=== PATIENT | female | born 1945 | race Caucasian/White ===

== ENCOUNTER → 2017-05-17 | Emergency (ER) | payer MEDICARE ==
--- NOTE | 2017-05-17 15:11 | NUR ---
Patient left without being seen by ER Physician
== END | disposition left against medical advice (07) ==
LOC: ER 14:47
DX: Z53.21 Procedure and treatment not carried out due to patient leaving prior to being seen by health care provider (principal)

== ENCOUNTER 2018-02-08 15:03 | Emergency (ER) | payer MEDICARE ==
[~2018-02-08] VITALS: Ht 154.9 cm; Wt 64.0 kg
--- NOTE | 2018-02-08 15:30 | NUR ---
PT CAME IN WITH C/O VAGINAL BLEEDING SINCE THIS AM. DENIES TRAUMA. VSS. SEEN BY FOR PERLA. FAMILY MEMBER AT . SAFETY AND COMFORT MEASURES PROVIDED. WILL MONITOR.
--- NOTE | 2018-02-08 16:20 | NUR ---
AT FOR PELVIC EXAM.
[2018-02-08] MEDS ORDERED: ACETAMINOPHEN ES 500 MG TABLET PO ONE (16:30)
--- NOTE | 2018-02-08 16:35 | NUR ---
PT REFUSED MED. MADE AWARE.
[2018-02-08] MEDS ORDERED: ACETAMINOPHEN ES 500 MG TABLET ONE (16:38)
--- NOTE | 2018-02-08 17:25 | NUR ---
US TECH AT BS.
--- NOTE | 2018-02-08 18:05 | NUR ---
Patient discharged to home in stable condition. Written and verbal after care instructions given. Patient verbalizes understanding of instruction.
[2018-02-08 18:06] VITALS: BP 132/77
== END 2018-02-08 18:06 | disposition home or self-care (01) ==
LOC: ER 15:04
DX: N93.9 Abnormal uterine and vaginal bleeding, unspecified (principal); I10 Essential (primary) hypertension; F32.9 Major depressive disorder, single episode, unspecified; F41.9 Anxiety disorder, unspecified; E78.5 Hyperlipidemia, unspecified; Z90.710 Acquired absence of both cervix and uterus; Z88.0 Allergy status to penicillin; Z88.1 Allergy status to other antibiotic agents
CPT/HCPCS: 76856-TC; A4606; Z7610

== ENCOUNTER 2018-02-28 19:40 | Inpatient (IN) | payer MEDICARE ==
[~2018-02-28] VITALS: Ht 154.9 cm; Wt 64.9 kg
[2018-02-28 20:22] LABS: BASOPHILS # (AUTO) 0.3 /CMM (0.0-0.2); BASOPHILS % (AUTO) 2.8 % (0.0-2.0); EOSINOPHILS % (AUTO) 0.6 % (0.0-6.0); HEMATOCRIT 42 % (33-45); HEMOGLOBIN 14.3 g/dL (11.5-14.8); LYMPHOCYTES # (AUTO) 2.2 /CMM (0.8-4.8); LYMPHOCYTES % (AUTO) 20.2 % (20.0-44.0); MEAN CORPUSCULAR HGB CONC 34 g/dl (31.0-36.0); MEAN CORPUSCULAR VOLUME 83 fL (82-100); MONOCYTES # (AUTO) 0.6 /CMM (0.1-1.30); MONOCYTES % (AUTO) 5.6 % (2.0-12.0); NEUTROPHILS # (AUTO) 7.5 /CMM (1.8-8.9); NEUTROPHILS % (AUTO) 70.8 % (43.0-81.0); PLATELET COUNT (AUTO) 296 /CMM (150-450); RDW COEFFICIENT OF VARIATION 12.4 (11.5-15.0); RED BLOOD CELL COUNT(AUTO) 5.07 MIL/uL (4.0-5.2); WHITE BLOOD COUNT (AUTO) 10.7 K/uL (4.3-11.0)
[2018-02-28 20:32] LABS: CALCIUM, SERUM 9.8 mg/dL (8.5-10.1); CARBON DIOXIDE 31 mmol/L (21-32); CHLORIDE 104 mmol/L (98-107); CREATININE 0.8 mg/dL (0.6-1.3); GLUCOSE 104 mg/dL (74-106); SODIUM SERUM 143 mmol/L (136-145); UREA NITROGEN, BLOOD 12 mg/dL (7-18)
[2018-02-28 20:56] LABS: INR 1.02 (0.87-1.13)
[2018-02-28 21:24] LABS: CHOLESTEROL 218 mg/dL (<200); HDL CHOLESTEROL 92 mg/dL (40-60); LDL 119 mg/dL (0-99); TRIGLYCERIDES 83 mg/dL (30-150)
[2018-02-28 21:25] LABS: TROPONIN I < 0.017 ng/mL (0.00-0.056)
[2018-02-28] MEDS ORDERED: DULO60CA45 PO (21:54)
[2018-02-28] MEDS ORDERED: LORA-259 PO (21:54)
[2018-02-28] MEDS ORDERED: AMLO2.5T3 PO (21:54)
[2018-02-28] MEDS ORDERED: PRAV10TA40 PO (21:54)
[2018-02-28] MEDS ORDERED: SIMVASTATIN 40 MG TABLET PO SCH (22:00)
[2018-02-28] MEDS: BLOOD SUGAR DIAGNOSTIC 1 EACH STRIP IN SCH (22:00)
[2018-02-28 23:52] VITALS: BP 132/70
[2018-03-01 00:16] VITALS: BP 132/90
[2018-03-01] MEDS: BLOOD SUGAR DIAGNOSTIC 1 EACH STRIP IN SCH ×3 (00:36→07:30)
[2018-03-01 04:00] VITALS: BP 152/79
[2018-03-01 06:16] LABS: BASOPHILS % (AUTO) 0.2 % (0.0-2.0); EOSINOPHILS % (AUTO) 1.5 % (0.0-6.0); HEMATOCRIT 40 % (33-45); HEMOGLOBIN 13.3 g/dL (11.5-14.8); LYMPHOCYTES # (AUTO) 2.1 /CMM (0.8-4.8); LYMPHOCYTES % (AUTO) 26.2 % (20.0-44.0); MEAN CORPUSCULAR HGB CONC 33 g/dl (31.0-36.0); MEAN CORPUSCULAR VOLUME 86 fL (82-100); MONOCYTES # (AUTO) 0.6 /CMM (0.1-1.30); MONOCYTES % (AUTO) 7.6 % (2.0-12.0); NEUTROPHILS # (AUTO) 5.3 /CMM (1.8-8.9); NEUTROPHILS % (AUTO) 64.5 % (43.0-81.0); PLATELET COUNT (AUTO) 279 /CMM (150-450); RED BLOOD CELL COUNT(AUTO) 4.68 MIL/uL (4.0-5.2); WHITE BLOOD COUNT (AUTO) 8.2 K/uL (4.3-11.0)
[2018-03-01 06:34] LABS: INR 1.02 (0.87-1.13)
[2018-03-01 06:43] LABS: CALCIUM, SERUM 9.4 mg/dL (8.5-10.1); CARBON DIOXIDE 29 mmol/L (21-32); CHLORIDE 105 mmol/L (98-107); CREATININE 0.7 mg/dL (0.6-1.3); GLUCOSE 99 mg/dL (74-106); POTASSIUM 3.2 mmol/L (3.5-5.1); SODIUM SERUM 144 mmol/L (136-145); UREA NITROGEN, BLOOD 14 mg/dL (7-18)
[2018-03-01 06:54] LABS: CHOLESTEROL 193 mg/dL (<200); HDL CHOLESTEROL 82 mg/dL (40-60); LDL 100 mg/dL (0-99); TRIGLYCERIDES 136 mg/dL (30-150)
[2018-03-01] MEDS ORDERED: PANTOPRAZOLE 40 MG TABLET.DR PO SCH (07:30)
[2018-03-01 08:00] VITALS: BP 146/77
[2018-03-01] MEDS ORDERED: ASPIRIN EC 325 MG TABLET.DR PO SCH (09:00)
== END 2018-03-01 08:20 | disposition left against medical advice (07) | DRG 69 ==
LOC: ER 19:43 → TELE1 22:19
DX: G45.9 Transient cerebral ischemic attack, unspecified (principal); R31.9 Hematuria, unspecified; I10 Essential (primary) hypertension; E78.5 Hyperlipidemia, unspecified; Z90.710 Acquired absence of both cervix and uterus; Z88.1 Allergy status to other antibiotic agents; Z88.0 Allergy status to penicillin; I70.0 Atherosclerosis of aorta
CPT/HCPCS: 36415; 71045-TC; 80048-TC; 80061-TC; 82962-TC; 84484-TC; 85025-TC; 85730-TC; 87081-TC; 93307-TC; 93880-TC; A4606; G0378; Z7610

== ENCOUNTER 2019-02-27 20:42 | Inpatient (IN) | payer MEDICARE ==
[~2019-02-27] VITALS: Ht 154.9 cm; Wt 61.7 kg
[~2019-02-27 20:42] MED LIST: AMLO2.5T4 PO; DULO60CA45 PO; LORA-259 PO; PRAV10TA40 PO
--- NOTE | 2019-02-27 21:00 | NUR ---
GPS RN-NOTES: ADMITTED A 73-YR OLD FEMALE, FROM [facility] ER. ADMITTED ON 5150 FOR GD. PER HOLD, PT. PRESENTED TO ED ANXIOUS AND CRYING. PT. HAS CHRONIC ISSUES WITH ANXIETY, MOOD SWINGS AND AGITATION. PT. IS EXPERIENCING VISUAL HALLUCINATIONS AND REMAINS IN DENIAL ABOUT HER MENTAL HEALTH ISSUES. PT. APPEARS GRAVELY DISABLED EVIDENCED BY HER POOR HISTORIAN MAKING CAPACITY AND PSYCHOSIS. UPON FACE TO FACE ASSESSMENT, PATIENT IS ALERT, ORIENTED X3, ANXIOUS, CRYING, DEPRESSED MOOD. VERBALIZATION OF FEELING ENCOURAGED. PT WAS ADVISED OF THE HOLD. PT'S RIGHTS DISCUSSED A GUIDE TO PRESCRIPTION MEDICATIONS GIVEN. IN NO APPARENT DISTRESS NOTED. BELONGINGS WERE INVENTORIED AND CHECKED FOR CONTRABAND. PT. IS UNDER THE PSYCHIATRIC CARE OF DR. ROSS ORDERS OBTAINED, AND UNDER THE MEDICAL CARE OF DR. BEASLEY. SKIN BODY ASSESSMENT PERFORMED. BED LOCKED AND PLACED IN LOWEST POSITION TO MAINTAIN SAFETY. FALL PRECAUTIONS IN PLACE. WILL CONTINUE TO MONITOR Q15 MIN ROUNDS FOR SAFETY AND BEHAVIOR.
[2019-02-27 21:30] VITALS: BP 145/74
[2019-02-27] MEDS ORDERED: MAG HYDROX/AL HYDROX/SIMETH 30 ML UDC PO PRN (22:00)
[2019-02-27] MEDS ORDERED: ACETAMINOPHEN 325 MG TABLET PO PRN (22:00)
[2019-02-27] MEDS: ATORVASTATIN 10 MG TABLET PO SCH (22:00)
[2019-02-27] MEDS ORDERED: MAGNESIUM HYDROXIDE 30 ML UDC PO PRN (22:00)
[2019-02-27] MEDS: LORAZEPAM 0.5 MG TABLET PO PRN (22:20)
[2019-02-27] MEDS ORDERED: BLOOD SUGAR DIAGNOSTIC 1 EACH STRIP IN ONE (22:30)
--- NOTE | 2019-02-27 22:30 | NUR ---
GPS-RN PATIENT REFUSED ATORVASTATIN SCHEDULED FOR TONIGHT. EXPLAINED THE IMPORTANCE BUT PATIENT STILL REFUSED.
[2019-02-28] MEDS: LORAZEPAM 0.5 MG TABLET PO PRN ×2 (05:28→21:08)
--- NOTE | 2019-02-28 06:32 | NUR ---
GPS-RN PATIENT IS VERY ANXIOUS, DEPRESSED, WITH EPISODES OF CRYING. VERBALIZATION OF FEELINGS ENCOURAGED. PRN ATIVAN GIVEN. WILL CONTINUE TO MONITOR PATIENT FOR SAFETY.
[2019-02-28 07:06] LABS: BASOPHILS # (AUTO) 0.1 /CMM (0.0-0.2); BASOPHILS % (AUTO) 0.5 % (0.0-2.0); EOSINOPHILS % (AUTO) 0.6 % (0.0-6.0); HEMATOCRIT 43 % (33-45); HEMOGLOBIN 14.3 g/dL (11.5-14.8); LYMPHOCYTES # (AUTO) 1.4 /CMM (0.8-4.8); MEAN CORPUSCULAR HGB CONC 33 g/dl (31.0-36.0); MEAN CORPUSCULAR VOLUME 85 fL (82-100); MONOCYTES # (AUTO) 0.7 /CMM (0.1-1.30); MONOCYTES % (AUTO) 6.9 % (2.0-12.0); NEUTROPHILS # (AUTO) 8.3 /CMM (1.8-8.9); PLATELET COUNT (AUTO) 289 /CMM (150-450); RED BLOOD CELL COUNT(AUTO) 5.09 MIL/uL (4.0-5.2); WHITE BLOOD COUNT (AUTO) 10.5 K/uL (4.3-11.0)
[2019-02-28 07:15] LABS: CALCIUM, SERUM 9.6 mg/dL (8.5-10.1); POTASSIUM 3.2 mmol/L (3.5-5.1)
[2019-02-28 08:00] VITALS: BP 168/90
[2019-02-28 09:00] VITALS: BP 168/90
[2019-02-28] MEDS ORDERED: AMLODIPINE BESYLATE 2.5 MG TABLET PO SCH (09:00)
--- NOTE | 2019-02-28 09:19 | NUR ---
GPS NOTE DR BEASLEY IS MADE AWARE OF POTASSIUM LEVEL OF 3.2 AND RECEIVED NEW ORDER FOR POTASSIUM CHLORIDE 40 MEQ PO X1. THE ORDER IS READ BACK, VERIFIED. NOTED AND CARRIED OUT.
[2019-02-28] MEDS ORDERED: POTASSIUM CHLORIDE 20 MEQ TAB.PRT.SR PO ONE (09:30)
[2019-02-28] MEDS: LORAZEPAM 0.5 MG TABLET PO SCH ×2 (11:55→16:42)
--- NOTE | 2019-02-28 11:59 | NUR ---
GPS NOTE RECEIVED ORDER FROM DR ROSS NEW ORDER OF URINALYSIS PROFILE. THE ORDER IS READ BACK, VERIFIED. NOTED AND CARRIED OUT.
[2019-02-28] MEDS ORDERED: QUETIAPINE FUMARATE 25 MG TABLET PO SCH ×2 (12:00→22:00)
[2019-02-28] MEDS ORDERED: SERTRALINE HCL 25 MG TABLET PO SCH (13:00)
--- NOTE | 2019-02-28 14:25 | NUR ---
Family Contact: KOKO met with the pt and her , Johnny ([phone]). The pt was highly anxious and the pts asked to meet with the SW alone. KOKO and the pts discussed the pts discharge plan and it was discussed that she will return home tentatively on Sunday per the MD.
--- NOTE | 2019-02-28 14:45 | NUR ---
Individual Intervention: SW met with the pt and informed her that the MD is tentatively planning her discharge for Sunday when her hold is up but stated that if she feels that the pt meets criteria to remain on the hold then she will increase it to a 5250 hold. Pt stated that she just wants to be discharged back home but the SW stated that she must be stable and that her will be ready for her once we clear her. SW reinstated that no one is taking her away from her .
--- NOTE | 2019-02-28 15:29 | NUR ---
Initial Discharge Plan: Pt currently resides at her home with her located at [address] [place] [address]; ([phone]). Per pt, she would like to return to her home. SW will work with the pt and the MD regarding appropriate discharge planning. SW will form a safe and proper plan.
[2019-02-28 16:00] VITALS: BP 160/90
--- NOTE | 2019-02-28 17:35 | NUR ---
GPS NOTE THE PATIENT DENIES SOB. RESPIRATION REGULAR AND UNLABORED. DENIES PAIN. THE PATIENT IN NO APPARENT DISTRESS. DENIES SI, HI, VISUAL AND AUDITORY HALLUCINATIONS. THE PATIENT IS MEDICATION COMPLIANT. SAFETY CHECKS DONE. WILL CONTINUE TO MONITOR.
--- NOTE | 2019-02-28 19:30 | NUR ---
GPS RN OPENING NOTE PATIENT A/O X2. HYPERVERBAL, DENIES SOB. RESPIRATION REGULAR AND UNLABORED. DENIES PAIN. THE PATIENT IN NO APPARENT DISTRESS. DENIES SI, HI, VISUAL AND AUDITORY HALLUCINATIONS. AT THE BEDSIDE. PATIENT IS CALM AND COOPERATIVE. NO EMOTIONAL DISTRESS AT THIS TIME. ID BAND ON. ENVIRONMENTAL CHECK DONE. WILL CONTINUE TO MONITOR [id number] FOR SAFETY AND BEHAVIOR.
[2019-02-28 20:58] VITALS: BP 167/90
[2019-02-28] MEDS: ATORVASTATIN 10 MG TABLET PO SCH (21:07)
--- NOTE | 2019-03-01 07:55 | NUR ---
JONAH NOTE: PATIENT'S MORNING BP 180/90; CONTACTED DR BEASLEY IN REGARDS TO POSSIBLE PRN FOR BP. AWAITING RESPONSE. Addendum: 03/01/19 at 0757 by KENNEDI TRAN RN DR BEASLEY ORDERED HYDRALAZINE 25MG PO Q 6 HRS PRN FOR SBP >160
[2019-03-01 08:00] VITALS: BP 180/90
[2019-03-01] MEDS: LORAZEPAM 0.5 MG TABLET PO SCH ×2 (09:20→16:40)
[2019-03-01] MEDS: hydrALAZINE HCL 25 MG TABLET PO PRN (09:21)
[2019-03-01] MEDS: AMLODIPINE BESYLATE 5 MG TABLET PO SCH (09:23)
[2019-03-01 15:20] LABS: BILIRUBIN,URINE SMALL (NEGATIVE); BLOOD, URINE Trace-intact Ery/uL (NEGATIVE); KETONES,URINE Negative (NEGATIVE); LEUKOCYTE ESTERASE ,URINE Small (NEGATIVE); NITRITE, URINE Negative (NEGATIVE); PROTEIN,URINE 100 mg/dl (NEGATIVE); UGLUCOSE Negative (NEGATIVE); UROBILINOGEN,URINE 0.2 EU/dL (0.2)
[2019-03-01 15:24] LABS: APPEARANCE,URINE SLIGHTLY HAZY (CLEAR); COLOR,URINE DARK YELLOW (YELLOW)
[2019-03-01 15:34] LABS: BACTERIA,URINE Few /HPF (None Seen); SQUAMOUS EPITHELIAL CELL,UR Moderate /HPF (None Seen)
[2019-03-01 15:35] LABS: CALCIUM OXALATE CRYSTALS,UR Few /HPF (None Seen)
[2019-03-01 16:00] VITALS: BP 135/63
[2019-03-01 20:09] VITALS: BP_SYST 147; BP_SYST 187; BP_DIAS 100; BP_DIAS 88
[2019-03-01 21:00] VITALS: BP 148/90
[2019-03-01] MEDS: MIRTAZAPINE 15 MG TABLET PO SCH (21:14)
[2019-03-01] MEDS: ATORVASTATIN 10 MG TABLET PO SCH (21:14)
[2019-03-01] MEDS: LORAZEPAM 0.5 MG TABLET PO PRN (21:53)
[2019-03-01] MEDS: TEMAZEPAM 7.5 MG CAPSULE PO PRN (23:26)
--- NOTE | 2019-03-02 07:15 | NUR ---
RN NOTES : DURING SHIFT PT. BEHAVIOR VERY UNCOOPERATIVE , PARANOID ,DISHELVED, NEEDY, INTRUSIVE WITH STAFF , NOT FOLLOWING ANY REDIRECTIONS ,ENDORSE TO DAY SHIFT FOR CONITUITY OF CARE .
[2019-03-02 08:00] VITALS: BP 184/98
[2019-03-02] MEDS: AMLODIPINE BESYLATE 5 MG TABLET PO SCH (08:10)
[2019-03-02] MEDS: LORAZEPAM 0.5 MG TABLET PO SCH ×2 (08:10→16:54)
[2019-03-02] MEDS: LORAZEPAM 0.5 MG TABLET PO PRN (14:40)
[2019-03-02 16:00] VITALS: BP 166/100
[2019-03-02] MEDS: hydrALAZINE HCL 25 MG TABLET PO PRN (19:46)
[2019-03-02 19:55] VITALS: BP 195/107
[2019-03-02] MEDS: MIRTAZAPINE 15 MG TABLET PO SCH (21:24)
[2019-03-02] MEDS: ATORVASTATIN 10 MG TABLET PO SCH (21:24)
[2019-03-02] MEDS: TEMAZEPAM 7.5 MG CAPSULE PO PRN (21:57)
--- NOTE | 2019-03-03 06:27 | NUR ---
GPS-RN CALLED [facility] SPOKE TO DR. VILLALPANDO REGARDING URINE CULTURE RESULT PRELIM, ORGANISM #1 STREP AGALACTIAE GROUP B 50,000 CFU/ML WITH NO NEW ORDER GIVEN AT THIS TIME.
[2019-03-03] MEDS: LORAZEPAM 0.5 MG TABLET PO SCH (07:42)
[2019-03-03] MEDS: AMLODIPINE BESYLATE 5 MG TABLET PO SCH (07:42)
[2019-03-03 08:00] VITALS: BP 133/95
--- NOTE | 2019-03-03 08:30 | NUR ---
DR. KEE MADE AWARE OF BACTERIA IN URINE,NO NEW ORDERS.
--- NOTE | 2019-03-03 11:01 | NUR ---
Family Contact: Pt's , Johnny ([phone]), called the SW and stated that he would like to be notified when there is a Probable Cause hearing so that he can attend with the pt. SW stated that she will be notifying him as soon as she knows. Pts inquired about the medications as well and the SW informed him about which ones the pt is on and redirected his questions to the MD. SW stated that she will keep him updated in regards to the pts discharge planning.
--- NOTE | 2019-03-03 12:09 | NUR ---
Psychotherapist Contact: KOKO called the pts psychotherapist, Dr. Klein ([phone]), and was informed that he will call back once because he is currently with a client. KOKO was informed that the pt has an appointment set for 03/13/19 at 10AM.
--- NOTE | 2019-03-03 12:10 | NUR ---
Family Contact: KOKO called the pt's , Johnny ([phone]), and informed him that the pt will be discharged today around 4:30pm and that the pt will be referred to a psychiatrist for outpatient services.
--- NOTE | 2019-03-03 14:21 | NUR ---
Discharge Note: Pt was discharged back home located at [address] [facility] [facility], [place] [address]; ([phone]). Pt�s , Johnny ([phone]), picked the pt up around 4:30PM. Upon discharge, the pt appeared to be in an anxious mood and presented with a distressed affect. Pt denied both suicidal and homicidal ideation as well as auditory and visual hallucinations. Pt has an appointment with her psychotherapist, Dr. Klein, [place] [address] [facility], [address], [place] [address]; ([phone]), on 03/13/19 at 10AM. Pt will be under the care of her psychiatrist, Dr. Collins located at [address] [facility] [place] [address]; ; a fax of records was sent to: and her spring former hand, Dr. Ching, located at [address] [facility] [address], [place] [address]; .
[2019-03-03 16:00] VITALS: BP 155/87
--- NOTE | 2019-03-03 16:00 | NUR ---
REFUSED DISCHARGE PHOTOS.
--- NOTE | 2019-03-03 16:45 | NUR ---
PT. MAKING PLANS FOR DISCHARGE.ALL PAPERS SIGNED.GIVEN PRESCRIPTIONS.SPOUSE HERE AND AWARE OF RXS.PT. DENIES S/I,H/I AND COMMAND HALLUCINATIONS.TAKEN TO LOBBY VIA W/C ACCOMPANIED BY TECHNICAL SUPPORT MANAGER AND .
== END 2019-03-03 16:40 | disposition home or self-care (01) | DRG 885 ==
LOC: GPS 20:42
PROVIDERS: ADMIT Psychiatry & Neurology Psychosomatic Medicine; ATTEND Family Medicine
DX: F33.2 Major depressive disorder, recurrent severe without psychotic features (principal); F29 Unspecified psychosis not due to a substance or known physiological condition; F41.9 Anxiety disorder, unspecified; Z90.710 Acquired absence of both cervix and uterus; I10 Essential (primary) hypertension; F19.90 Other psychoactive substance use, unspecified, uncomplicated; Z73.6 Limitation of activities due to disability; E78.5 Hyperlipidemia, unspecified
CPT/HCPCS: 36415; 80048-TC; 80061-TC; 81000-TC; 82962-TC; 84443-TC; 85025-TC; 87081-TC; 87086-TC

== ENCOUNTER 2021-07-05 03:33 | Emergency (ER) | payer MEDICARE, OTHER ==
[~2021-07-05] VITALS: Ht 157.5 cm; Wt 56.7 kg
--- NOTE | 2021-07-05 03:44 | NUR ---
SANDY AHMADI: HOME [phone] CELL [phone]
--- NOTE | 2021-07-05 03:47 | NUR ---
CHARLOTTE 86 FROM HOME FOR C/O LOWER BACK AND R ELBOW PAIN S/P FALL FROM HOME. NEURO ASSESSMENTS COMPLETED AND NO DEFECITS NOTED. PT BREATHING EVEN AND UNLABORED. CHANGED INTO GOWN AND PLACED ON MONITOR AND PULSE OX AND ALL V/S STABLE.
--- NOTE | 2021-07-05 05:59 | NUR ---
SPOKE TO SANDY. WILL PICKUP AT 0700
--- NOTE | 2021-07-05 07:04 | NUR ---
Patient discharged to home in stable condition. Written and verbal after care instructions given. Patient verbalizes understanding of instruction.
[2021-07-05 07:25] VITALS: BP 144/71
== END 2021-07-05 07:25 | disposition home or self-care (01) ==
LOC: ER 03:35
DX: S50.01XA Contusion of right elbow, initial encounter (principal); S80.11XA Contusion of right lower leg, initial encounter; R51.9 Headache, unspecified; E78.00 Pure hypercholesterolemia, unspecified; I10 Essential (primary) hypertension; Z88.0 Allergy status to penicillin; Z88.1 Allergy status to other antibiotic agents; Z79.52 Long term (current) use of systemic steroids; Z79.899 Other long term (current) drug therapy; W06.XXXA Fall from bed, initial encounter; Y93.89 Activity, other specified; Y92.89 Other specified places as the place of occurrence of the external cause; Y99.8 Other external cause status
CPT/HCPCS: 70450-TC; 72125-TC; 73080-TC; 73590-TC

== ENCOUNTER 2022-02-21 06:51 | Emergency (ER) | payer OTHER ==
[~2022-02-21] VITALS: Ht 154.9 cm; Wt 45.4 kg
--- NOTE | 2022-02-21 07:00 | NUR ---
[email or web address]. FROM HOME GOT BITTEN BY ANTS ON GENITAL AREA, LEGS AND ARMS. PT AWAKE AND RESPONSIVE. TOLERATING R/A WELL WITH NO SOB.
[2022-02-21 07:01] VITALS: BP 181/91
--- NOTE | 2022-02-21 07:01 | NUR ---
Note guzman in EDM - 02/21/22 at 0716 by BELL [email or web address]. GOT BITTEN BY ANTS ON GENITAL AREA, LEGS AND ARMS. PT AWAKE AND RESPONSIVE. TOLERATING R/A WELL WITH NO SOB.
--- NOTE | 2022-02-21 07:05 | NUR ---
Note guzman in ED - 02/21/22 at 0720 by EMILE TANVI. GOT BITTEN BY ANTS ON GENITAL AREA, LEGS AND ARMS. PLACED COMFORTABLY IN BED. VITALS CHECKED.
--- NOTE | 2022-02-21 07:13 | NUR ---
ASSISTED DR PRIEST IN CHAPERONING SKIN ASSESSMENT.
--- NOTE | 2022-02-21 07:37 | NUR ---
PATIENT FOR DISCHARGE BUT AWAITS TO PICK HER UP. DC INSTRUCTIONS WITH PATIENT.
--- NOTE | 2022-02-21 09:02 | NUR ---
CALLED , SANDY, REGARDING PT CLEANER WALL AND WAS NOTIFIED THAT THE ETA FOR CLEANER WALL WILL BE AT 0930. AWAITING A CALL BACK IF THE ETA CHANGES.
--- NOTE | 2022-02-21 09:59 | NUR ---
Patient discharged to home in stable condition. Written and verbal after care instructions given. Patient verbalizes understanding of instruction.
== END 2022-02-21 09:59 | disposition home or self-care (01) ==
LOC: ER 06:53
DX: L29.9 Pruritus, unspecified (principal); F41.9 Anxiety disorder, unspecified; I10 Essential (primary) hypertension; F32.A Depression, unspecified; M19.90 Unspecified osteoarthritis, unspecified site; E78.00 Pure hypercholesterolemia, unspecified; Z88.0 Allergy status to penicillin; Z88.8 Allergy status to other drugs, medicaments and biological substances; Z79.899 Other long term (current) drug therapy

== ENCOUNTER 2022-06-25 16:43 | Emergency (ER) | payer OTHER ==
[~2022-06-25] VITALS: Ht 160 cm; Wt 52.2 kg
[2022-06-25] MEDS ORDERED: ACETAMINOPHEN ES 500 MG TABLET PO ONE (17:30)
[2022-06-25] MEDS ORDERED: ACETAMINOPHEN ES 500 MG TABLET ONE ×2 (17:39→17:40)
[2022-06-25 17:51] LABS: BASOPHILS # (AUTO) 0.1 K/uL (0.0-0.2); BASOPHILS % (AUTO) 0.6 % (0.0-2.0); EOSINOPHILS % (AUTO) 0.4 % (0.0-6.0); HEMATOCRIT 39 % (33-45); HEMOGLOBIN 12.4 g/dL (11.5-14.8); LYMPHOCYTES # (AUTO) 1.5 K/uL (0.8-4.8); LYMPHOCYTES % (AUTO) 16.2 % (20.0-44.0); MEAN CORPUSCULAR HGB CONC 32 g/dl (31.0-36.0); MEAN CORPUSCULAR VOLUME 86 fL (82-100); MONOCYTES # (AUTO) 0.5 K/uL (0.1-1.30); MONOCYTES % (AUTO) 5.7 % (2.0-12.0); NEUTROPHILS # (AUTO) 6.9 K/uL (1.8-8.9); NEUTROPHILS % (AUTO) 77.1 % (43.0-81.0); PLATELET COUNT (AUTO) 268 K/uL (150-450); RED BLOOD CELL COUNT(AUTO) 4.49 MIL/uL (4.0-5.2)
[2022-06-25 17:58] LABS: CALCIUM, SERUM 9.3 mg/dL (8.5-10.1); CARBON DIOXIDE 28 mmol/L (21-32); CHLORIDE 104 mmol/L (98-107); CREATININE 0.8 mg/dL (0.6-1.3); GLUCOSE 112 mg/dL (74-106); POTASSIUM 3.4 mmol/L (3.5-5.1); SODIUM SERUM 140 mmol/L (136-145); UREA NITROGEN, BLOOD 19 mg/dL (7-18)
[2022-06-25 18:04] LABS: ALANINE AMINOTRANSFERASE 24 U/L (12-78); ALBUMIN 3.6 g/dL (3.4-5.0); ALKALINE PHOSPHATASE 108 U/L (46-116); ASPARTATE AMINOTRANSFERASE 24 U/L (15-37); BILIRUBIN,DIRECT 0.1 mg/dL (0.0-0.2); BILIRUBIN,TOTAL 0.5 mg/dL (0.2-1.0); LIPASE 185 U/L (73-393); TOTAL PROTEIN, SERUM 6.7 g/dL (6.4-8.2)
[2022-06-25 19:49] VITALS: BP 161/98
== END 2022-06-25 21:46 | disposition short-term general hospital (02) ==
LOC: ER 16:46
DX: S09.90XA Unspecified injury of head, initial encounter (principal); Y04.2XXA Assault by strike against or bumped into by another person, initial encounter; Y92.039 Unspecified place in apartment as the place of occurrence of the external cause; I10 Essential (primary) hypertension; Z88.1 Allergy status to other antibiotic agents; Z88.0 Allergy status to penicillin; Z79.899 Other long term (current) drug therapy; M19.90 Unspecified osteoarthritis, unspecified site; E78.00 Pure hypercholesterolemia, unspecified; R94.02 Abnormal brain scan; Z20.822 Contact with and (suspected) exposure to COVID-19; F03.90 Unspecified dementia, unspecified severity, without behavioral disturbance, psychotic disturbance, mood disturbance, and anxiety
CPT/HCPCS: 99285; 72125; 71045; 87426; 93005; 72170; 70450; 70486; 85025; 80048; 83690; 80076; 36415; 84484; 82962; C9803

== ENCOUNTER 2023-02-15 19:01 | Emergency (ER) | payer OTHER ==
[~2023-02-15] VITALS: Ht 160 cm; Wt 51.5 kg
[2023-02-15 19:17] VITALS: TEMP 97.8
[2023-02-15] MEDS ORDERED: HALOPERIDOL LACTATE INJ 5 MG/ML VIAL ONE (19:51)
[2023-02-15] MEDS ORDERED: diphenhydrAMINE HCL 50 MG/ML VIAL ONE (19:51)
[2023-02-15] MEDS ORDERED: HALOPERIDOL LACTATE INJ 5 MG/ML VIAL IM ONE (20:00)
[2023-02-15] MEDS ORDERED: diphenhydrAMINE HCL 50 MG/ML VIAL IM ONE (20:00)
[2023-02-15 20:18] LABS: APPEARANCE,URINE CLEAR (CLEAR); BILIRUBIN,URINE NEGATIVE (NEGATIVE); BLOOD, URINE 1+ Ery/uL (NEGATIVE); COLOR,URINE YELLOW (YELLOW); KETONES,URINE 1+ mg/dL (NEGATIVE); LEUKOCYTE ESTERASE ,URINE TRACE (NEGATIVE); NITRITE, URINE NEGATIVE (NEGATIVE); PH,URINE 6.5 (5.0-8.0); PROTEIN,URINE 1+ mg/dl (NEGATIVE); UGLUCOSE NEGATIVE (NEGATIVE); UROBILINOGEN,URINE 0.2 EU/dL (0.2)
[2023-02-15 20:29] LABS: AMPHETAMINE, URINE NEGATIVE (NEGATIVE); BARBITURATE, URINE NEGATIVE (NEGATIVE); BENZODIAZEPINE, URINE NEGATIVE (NEGATIVE); CANNABINOID, URINE NEGATIVE (NEGATIVE); COCCAINE, URINE NEGATIVE (NEGATIVE); OPIATE, URINE NEGATIVE (NEGATIVE); PHENCYCLIDINE SCREEN,URINE NEGATIVE (NEGATIVE)
[2023-02-15 20:52] LABS: ADD URINE CULTURE YES; BACTERIA,URINE 1+ /HPF (None Seen); CALCIUM OXALATE CRYSTALS,UR Few /HPF (None Seen); SQUAMOUS EPITHELIAL CELL,UR Few /HPF (None Seen)
[2023-02-15] MEDS ORDERED: CEFTRIAXONE 1 G in IV D5W 50 ML IV ONE (21:00)
[2023-02-15] MEDS ORDERED: CEFTRIAXONE 1GM BAG (ER ONLY) 50 ML IV ONE (21:09)
[2023-02-15 21:22] LABS: BASOPHILS # (AUTO) 0.1 K/uL (0.0-0.2); BASOPHILS % (AUTO) 1.3 % (0.0-2.0); EOSINOPHILS % (AUTO) 0.1 % (0.0-6.0); HEMATOCRIT 37 % (33-45); HEMOGLOBIN 12.3 g/dL (11.5-14.8); LYMPHOCYTES # (AUTO) 0.5 K/uL (0.8-4.8); LYMPHOCYTES % (AUTO) 7.5 % (20.0-44.0); MEAN CORPUSCULAR HEMOGLOBIN 28 PG (26.0-33.0); MEAN CORPUSCULAR HGB CONC 33 g/dl (31.0-36.0); MEAN CORPUSCULAR VOLUME 86 fL (82-100); MONOCYTES # (AUTO) 0.3 K/uL (0.1-1.30); MONOCYTES % (AUTO) 4.3 % (2.0-12.0); NEUTROPHILS # (AUTO) 5.3 K/uL (1.8-8.9); NEUTROPHILS % (AUTO) 86.8 % (43.0-81.0); PLATELET COUNT (AUTO) 191 K/uL (150-450); RED BLOOD CELL COUNT(AUTO) 4.35 MIL/uL (4.0-5.2); RED CELL DISTRIBUTION WIDTH 13.9 % (11.5-15.0); WHITE BLOOD COUNT (AUTO) 6.1 K/uL (4.3-11.0)
[2023-02-15 21:38] LABS: CALCIUM, SERUM 9.4 mg/dL (8.5-10.1); CARBON DIOXIDE 30 mmol/L (21-32); CHLORIDE 104 mmol/L (98-107); CREATININE 0.8 mg/dL (0.6-1.3); GLUCOSE 95 mg/dL (74-106); POTASSIUM 3.3 mmol/L (3.5-5.1); SODIUM SERUM 144 mmol/L (136-145); UREA NITROGEN, BLOOD 15 mg/dL (7-18)
[2023-02-15 21:43] LABS: ALANINE AMINOTRANSFERASE 16 U/L (12-78); ALBUMIN 3.4 g/dL (3.4-5.0); ALKALINE PHOSPHATASE 81 U/L (46-116); ASPARTATE AMINOTRANSFERASE 15 U/L (15-37); BILIRUBIN,DIRECT 0.1 mg/dL (0.0-0.2); BILIRUBIN,TOTAL 0.4 mg/dL (0.2-1.0); TOTAL PROTEIN, SERUM 6.7 g/dL (6.4-8.2)
[2023-02-15 21:44] LABS: ACETAMINOPHEN <10 ug/ml (10-30); ALCOHOL, BLOOD < 3 mg/dL (0-10); SALICYLATE 0.5 mg/dL (2.8-20.0)
[2023-02-16] MEDS ORDERED: HALOPERIDOL LACTATE INJ 5 MG/ML VIAL ONE (00:37)
[2023-02-16] MEDS ORDERED: diphenhydrAMINE HCL 50 MG/ML VIAL ONE (00:37)
[2023-02-16] MEDS ORDERED: diphenhydrAMINE HCL 50 MG/ML VIAL IV ONE (01:00)
[2023-02-16] MEDS ORDERED: HALOPERIDOL LACTATE INJ 5 MG/ML VIAL IV ONE (01:00)
[2023-02-16 01:22] VITALS: O2SAT 98
[2023-02-16] MEDS ORDERED: AMLODIPINE BESYLATE 5 MG TABLET ONE (03:26)
[2023-02-16 03:28] VITALS: BP 173/78
[2023-02-16] MEDS ORDERED: AMLODIPINE BESYLATE 5 MG TABLET PO ONE (03:30)
== END 2023-02-16 07:02 ==
LOC: ER 19:05
DX: R45.851 Suicidal ideations (principal); N39.0 Urinary tract infection, site not specified; R51.9 Headache, unspecified; I10 Essential (primary) hypertension; E78.00 Pure hypercholesterolemia, unspecified; Z20.822 Contact with and (suspected) exposure to COVID-19; Z79.899 Other long term (current) drug therapy; Z88.0 Allergy status to penicillin; Z88.1 Allergy status to other antibiotic agents
CPT/HCPCS: 99285; 96372; 96365; 70450; 85025; 80048; 87086; 80076; 81001; 36415; 80143; 80320; 80307; 96375; 87426; J1200 ×2; J1630 ×2; J0696 ×2; J7060; C9803; G0480

== ENCOUNTER 2023-11-07 09:02 | Emergency (ER) | payer OTHER ==
[~2023-11-07] VITALS: Ht 157.5 cm; Wt 57.2 kg
[2023-11-07 10:23] LABS: BASOPHILS % (AUTO) 0.5 % (0.0-2.0); EOSINOPHILS % (AUTO) 0.6 % (0.0-6.0); HEMATOCRIT 37 % (33-45); HEMOGLOBIN 12.3 g/dL (11.5-14.8); LYMPHOCYTES % (AUTO) 16.2 % (20.0-44.0); MEAN CORPUSCULAR HEMOGLOBIN 28 PG (26.0-33.0); MEAN CORPUSCULAR HGB CONC 33 g/dl (31.0-36.0); MEAN CORPUSCULAR VOLUME 83 fL (82-100); MONOCYTES # (AUTO) 0.3 K/uL (0.1-1.30); NEUTROPHILS # (AUTO) 4.7 K/uL (1.8-8.9); NEUTROPHILS % (AUTO) 77.7 % (43.0-81.0); PLATELET COUNT (AUTO) 197 K/uL (150-450); RED BLOOD CELL COUNT(AUTO) 4.44 MIL/uL (4.0-5.2); WHITE BLOOD COUNT (AUTO) 6.1 K/uL (4.3-11.0)
[2023-11-07 10:29] LABS: CALCIUM, SERUM 9.5 mg/dL (8.5-10.1); CARBON DIOXIDE 31 mmol/L (21-32); CHLORIDE 104 mmol/L (98-107); CREATININE 0.7 mg/dL (0.6-1.3); GLUCOSE 91 mg/dL (74-106); POTASSIUM 3.7 mmol/L (3.5-5.1); SODIUM SERUM 142 mmol/L (136-145); UREA NITROGEN, BLOOD 16 mg/dL (7-18)
[2023-11-07 14:29] VITALS: BP 141/77; TEMP 98.1; O2SAT 97
== END 2023-11-07 14:54 | disposition short-term general hospital (02) ==
LOC: ER 09:04
DX: R62.7 Adult failure to thrive (principal); I10 Essential (primary) hypertension; M19.90 Unspecified osteoarthritis, unspecified site; E78.00 Pure hypercholesterolemia, unspecified; Z88.0 Allergy status to penicillin; Z88.8 Allergy status to other drugs, medicaments and biological substances; Z68.23 Body mass index [BMI] 23.0-23.9, adult; Z20.822 Contact with and (suspected) exposure to COVID-19
CPT/HCPCS: 36415; 80048-TC; 85025-TC

== ENCOUNTER 2024-04-19 07:17 | Emergency (ER) | payer OTHER ==
[~2024-04-19] VITALS: Ht 167.6 cm; Wt 62.6 kg
[2024-04-19 07:52] LABS: BASOPHILS % (AUTO) 0.5 % (0.0-2.0); EOSINOPHILS # (AUTO) 0.1 K/uL (0.0-0.7); EOSINOPHILS % (AUTO) 1.8 % (0.0-6.0); HEMATOCRIT 38 % (33-45); HEMOGLOBIN 12.4 g/dL (11.5-14.8); LYMPHOCYTES # (AUTO) 1.4 K/uL (0.8-4.8); LYMPHOCYTES % (AUTO) 18.7 % (20.0-44.0); MEAN CORPUSCULAR HEMOGLOBIN 27 PG (26.0-33.0); MEAN CORPUSCULAR HGB CONC 33 g/dl (31.0-36.0); MEAN CORPUSCULAR VOLUME 84 fL (82-100); MONOCYTES # (AUTO) 0.7 K/uL (0.1-1.30); MONOCYTES % (AUTO) 8.8 % (2.0-12.0); NEUTROPHILS # (AUTO) 5.3 K/uL (1.8-8.9); NEUTROPHILS % (AUTO) 70.2 % (43.0-81.0); PLATELET COUNT (AUTO) 238 K/uL (150-450); RED BLOOD CELL COUNT(AUTO) 4.52 MIL/uL (4.0-5.2); RED CELL DISTRIBUTION WIDTH 14.9 % (11.5-15.0); WHITE BLOOD COUNT (AUTO) 7.6 K/uL (4.3-11.0)
[2024-04-19 08:01] LABS: CALCIUM, SERUM 9.5 mg/dL (8.5-10.1); CARBON DIOXIDE 32 mmol/L (21-32); CHLORIDE 100 mmol/L (98-107); CREATININE 0.7 mg/dL (0.6-1.3); GLUCOSE 106 mg/dL (74-106); POTASSIUM 3.5 mmol/L (3.5-5.1); SODIUM SERUM 138 mmol/L (136-145); UREA NITROGEN, BLOOD 23 mg/dL (7-18)
[2024-04-19 11:57] VITALS: BP 145/91; TEMP 98.2; O2SAT 99
== END 2024-04-19 11:15 | disposition home or self-care (01) ==
LOC: ER 07:38
DX: M94.0 Chondrocostal junction syndrome [Tietze] (principal); M19.90 Unspecified osteoarthritis, unspecified site; F32.A Depression, unspecified; I10 Essential (primary) hypertension; Z79.899 Other long term (current) drug therapy; Z88.0 Allergy status to penicillin; Z88.1 Allergy status to other antibiotic agents; Z86.79 Personal history of other diseases of the circulatory system
CPT/HCPCS: 36415; 71045-TC; 80048-TC; 84484-TC; 85025-TC

== ENCOUNTER 2024-10-18 23:51 | Inpatient (IN) | payer OTHER, MEDICAID ==
[~2024-10-18] VITALS: Ht 154.9 cm; Wt 54.4 kg
[2024-10-19] MEDS ORDERED: HALOPERIDOL LACTATE INJ 5 MG/ML VIAL ONE ×2 (00:14→01:59)
[2024-10-19 00:21] LABS: BASOPHILS # (AUTO) 0.1 K/uL (0.0-0.2); EOSINOPHILS # (AUTO) 0.2 K/uL (0.0-0.7); EOSINOPHILS % (AUTO) 2.7 % (0.0-6.0); HEMATOCRIT 34 % (33-45); HEMOGLOBIN 11.2 g/dL (11.5-14.8); LYMPHOCYTES # (AUTO) 1.4 K/uL (0.8-4.8); LYMPHOCYTES % (AUTO) 17.7 % (20.0-44.0); MEAN CORPUSCULAR HEMOGLOBIN 27 PG (26.0-33.0); MEAN CORPUSCULAR HGB CONC 33 g/dl (31.0-36.0); MEAN CORPUSCULAR VOLUME 82 fL (82-100); MONOCYTES # (AUTO) 0.7 K/uL (0.1-1.30); NEUTROPHILS # (AUTO) 5.7 K/uL (1.8-8.9); NEUTROPHILS % (AUTO) 69.6 % (43.0-81.0); PLATELET COUNT (AUTO) 243 K/uL (150-450); RED CELL DISTRIBUTION WIDTH 14.4 % (11.5-15.0); WHITE BLOOD COUNT (AUTO) 8.2 K/uL (4.3-11.0)
[2024-10-19] MEDS: HALOPERIDOL LACTATE INJ 5 MG/ML VIAL IM ONE ×2 (00:28→02:01)
[2024-10-19 00:37] LABS: CALCIUM, SERUM 9.9 mg/dL (8.5-10.1); CARBON DIOXIDE 28 mmol/L (21-32); CHLORIDE 102 mmol/L (98-107); CREATININE 0.7 mg/dL (0.6-1.3); GLUCOSE 121 mg/dL (74-106); POTASSIUM 3.7 mmol/L (3.5-5.1); SODIUM SERUM 141 mmol/L (136-145); UREA NITROGEN, BLOOD 19 mg/dL (7-18)
[2024-10-19 00:43] LABS: ALANINE AMINOTRANSFERASE 14 U/L (12-78); ALBUMIN 3.6 g/dL (3.4-5.0); ALKALINE PHOSPHATASE 144 U/L (46-116); ASPARTATE AMINOTRANSFERASE 14 U/L (15-37); BILIRUBIN,DIRECT 0.1 mg/dL (0.0-0.2); BILIRUBIN,TOTAL 0.5 mg/dL (0.2-1.0); TOTAL PROTEIN, SERUM 7.6 g/dL (6.4-8.2)
[2024-10-19 00:51] LABS: APPEARANCE,URINE CLEAR (CLEAR); BILIRUBIN,URINE NEGATIVE (NEGATIVE); BLOOD, URINE 1+ Ery/uL (NEGATIVE); COLOR,URINE YELLOW (YELLOW); KETONES,URINE TRACE mg/dL (NEGATIVE); LEUKOCYTE ESTERASE ,URINE NEGATIVE (NEGATIVE); NITRITE, URINE NEGATIVE (NEGATIVE); PROTEIN,URINE NEGATIVE (NEGATIVE); UGLUCOSE NEGATIVE (NEGATIVE); UROBILINOGEN,URINE 0.2 EU/dL (0.2)
[2024-10-19 01:10] LABS: ADD URINE CULTURE NO; BACTERIA,URINE None seen /HPF (None Seen); MUCUS,URINE Few /LPF (None Seen); RBC,URINE 0-2 /HPF (0-2); SQUAMOUS EPITHELIAL CELL,UR Rare /HPF (None Seen); WBC,URINE 0-2 /HPF (0-3)
[2024-10-19] MEDS ORDERED: MAGNESIUM HYDROXIDE 30 ML UDC PO PRN (03:30)
[2024-10-19] MEDS ORDERED: ONDANSETRON HCL/PF 4 MG/2 ML VIAL IVP PRN (03:30)
[2024-10-19] MEDS ORDERED: Z GUARD REMEDY 4 OZ OINT TP PRN (03:30)
[2024-10-19] MEDS: IV NS 0.9% 500 ML BAG IV ONE (03:38)
[2024-10-19 03:50] VITALS: BP 163/71; TEMP 98.1; O2SAT 95
[2024-10-19] MEDS: IV 1/2NS 1000 ML 1,000 ML IV PRN (04:03)
[2024-10-19 04:48] VITALS: BP 163/71; TEMP 98.1; O2SAT 95
[2024-10-19] MEDS: PANTOPRAZOLE 40 MG TABLET.DR PO SCH (07:57)
[2024-10-19 08:00] VITALS: BP 164/72; TEMP 98.3; O2SAT 97
[2024-10-19] MEDS: AMLODIPINE BESYLATE 5 MG TABLET PO SCH ×2 (09:20→16:10)
[2024-10-19] MEDS ORDERED: AMLO-212 PO (13:15)
[2024-10-19] MEDS ORDERED: OMEG1CAP40 PO (13:15)
[2024-10-19] MEDS ORDERED: SERT100T PO (13:15)
[2024-10-19] MEDS ORDERED: LOSA25TA27 PO (13:15)
[2024-10-19] MEDS ORDERED: DIVA-76 PO ×2 (13:16)
[2024-10-19] MEDS ORDERED: CLON0.5T4 PO (13:16)
[2024-10-19] MEDS ORDERED: RIVA3CAP17 PO (13:16)
[2024-10-19] MEDS ORDERED: HOME MED MISCELLANEOUS XX SCH (13:30)
[2024-10-19 16:00] VITALS: BP 170/76; TEMP 98; O2SAT 96
[2024-10-19] MEDS: LOSARTAN POTASSIUM 25 MG TABLET PO SCH (16:10)
[2024-10-19] MEDS: clonazePAM 0.5 MG TABLET PO SCH (16:10)
[2024-10-19] MEDS: RIVASTIGMINE TARTRATE 1.5 MG CAPSULE PO SCH (16:10)
[2024-10-19 20:00] VITALS: BP 157/73; TEMP 97.7; O2SAT 96
[2024-10-19] MEDS: DIVALPROEX SODIUM 250 MG TABLET.DR PO SCH (21:35)
[2024-10-20] MEDS: ACETAMINOPHEN 325 MG TABLET PO PRN (01:20)
[2024-10-20 07:04] LABS: BASOPHILS # (AUTO) 0.1 K/uL (0.0-0.2); BASOPHILS % (AUTO) 0.7 % (0.0-2.0); EOSINOPHILS # (AUTO) 0.1 K/uL (0.0-0.7); EOSINOPHILS % (AUTO) 1.6 % (0.0-6.0); HEMATOCRIT 32 % (33-45); HEMOGLOBIN 10.9 g/dL (11.5-14.8); LYMPHOCYTES % (AUTO) 13.4 % (20.0-44.0); MEAN CORPUSCULAR HEMOGLOBIN 28 PG (26.0-33.0); MEAN CORPUSCULAR HGB CONC 34 g/dl (31.0-36.0); MEAN CORPUSCULAR VOLUME 82 fL (82-100); MONOCYTES # (AUTO) 0.6 K/uL (0.1-1.30); MONOCYTES % (AUTO) 7.9 % (2.0-12.0); NEUTROPHILS # (AUTO) 5.8 K/uL (1.8-8.9); NEUTROPHILS % (AUTO) 76.4 % (43.0-81.0); PLATELET COUNT (AUTO) 244 K/uL (150-450); RED BLOOD CELL COUNT(AUTO) 3.89 MIL/uL (4.0-5.2); RED CELL DISTRIBUTION WIDTH 13.9 % (11.5-15.0); WHITE BLOOD COUNT (AUTO) 7.5 K/uL (4.3-11.0)
[2024-10-20 07:22] LABS: CALCIUM, SERUM 9.5 mg/dL (8.5-10.1); CREATININE 0.6 mg/dL (0.6-1.3); MAGNESIUM 1.9 mg/dL (1.8-2.4); PHOSPHORUS 3.7 mg/dL (2.5-4.9); POTASSIUM 3.3 mmol/L (3.5-5.1)
[2024-10-20 07:34] LABS: THYROID STIMULATING HORMONE 1.17 uIU/mL (0.358-3.74)
[2024-10-20 08:00] VITALS: BP 168/80; TEMP 97.6; O2SAT 98
[2024-10-20] MEDS: DIVALPROEX SODIUM 250 MG TABLET.DR PO SCH (08:02)
[2024-10-20] MEDS: SERTRALINE HCL 50 MG TABLET PO SCH (08:03)
[2024-10-20 16:00] VITALS: BP 160/80; TEMP 99.7; O2SAT 98
[2024-10-20] MEDS: POTASSIUM CHLORIDE 20 MEQ TAB.PRT.SR PO SCH (17:21)
[2024-10-20 20:00] VITALS: BP 150/74; TEMP 98.2; O2SAT 97
[2024-10-21 07:00] LABS: CALCIUM, SERUM 9.1 mg/dL (8.5-10.1); CREATININE 0.7 mg/dL (0.6-1.3); POTASSIUM 3.4 mmol/L (3.5-5.1)
[2024-10-21 08:00] VITALS: BP 167/93; TEMP 98.1; O2SAT 96
[2024-10-21] MEDS: POTASSIUM CHLORIDE 20 MEQ TAB.PRT.SR PO SCH (09:30)
[2024-10-21 14:45] LABS: THYROID STIMULATING HORMONE 0.76 uIU/mL (0.358-3.74)
[2024-10-21 20:00] VITALS: BP 160/78; TEMP 98.8; O2SAT 93
[2024-10-22 07:00] VITALS: BP 149/83; TEMP 97.5; O2SAT 96
[2024-10-22 08:59] VITALS: TEMP 98.8
[2024-10-22] MEDS ORDERED: hydrOXYzine PAMOATE 25 MG CAPSULE PO PRN (10:30)
[2024-10-22 16:18] VITALS: BP 143/72
[2024-10-23 08:12] LABS: FOLIC ACID > 20.0 ng/mL (>3.0)
== END 2024-10-22 17:57 | DRG 641 ==
LOC: ER 23:56 → MED 10-19 03:02
PROVIDERS: ADMIT Nurse Practitioner Family; ATTEND Nurse Practitioner Acute Care
DX: E86.0 Dehydration (principal); F02.83 Dementia in other diseases classified elsewhere, unspecified severity, with mood disturbance; F02.84 Dementia in other diseases classified elsewhere, unspecified severity, with anxiety; E78.5 Hyperlipidemia, unspecified; G31.83 Neurocognitive disorder with Lewy bodies; G30.9 Alzheimer's disease, unspecified; F32.9 Major depressive disorder, single episode, unspecified; M15.9 Polyosteoarthritis, unspecified; R62.7 Adult failure to thrive; Z68.22 Body mass index [BMI] 22.0-22.9, adult; R79.89 Other specified abnormal findings of blood chemistry
CPT/HCPCS: 36415; 70450-TC; 71045-TC; 80048-TC; 80061-TC; 80076-TC; 81001; 82607-TC; 83735-TC; 83921; 84100-TC; 84425; 84443-TC; 84484-TC; 85025-TC; 87086-TC; 97110-TC; 97112-TC; 97116-TC; 97164; 97530-TC; 97535-TC; A4223; G0378; J1630; J3490; J7040